=== PATIENT | male | born 1980 ===

== ENCOUNTER 2023-04-14 06:24 | Day surgery (SDC) | payer OTHER ==
[~2023-04-14] VITALS: Ht 162.6 cm; Wt 81.6 kg
[~2023-04-14 06:24] MED LIST: AVAPRO75 MG PO; FENOFI PO
== END 2023-04-14 13:05 | disposition home or self-care (01) ==
LOC: CIR.AMB 06:24
PROVIDERS: ATTEND Surgery
DX: D17.1 Benign lipomatous neoplasm of skin and subcutaneous tissue of trunk (principal); R22.2 Localized swelling, mass and lump, trunk; Z20.822 Contact with and (suspected) exposure to COVID-19; I10 Essential (primary) hypertension